=== PATIENT | male | born 1955 | race Caucasian/White ===

== ENCOUNTER 2018-06-11 18:07 | Inpatient (IN) ==
[2018-06-11] MEDS ORDERED: Levofloxacin 750 MG/150 ML 750 MG/150 ML BAG IVPB ONE (18:43)
[2018-06-11] MEDS ORDERED: methylPREDNISolone 125 MG/2 ML VIAL IVP ONE (18:43)
[2018-06-11] MEDS ORDERED: Ipratropium/Albuterol Neb 3 ML IH ONE ×2 (18:43→19:38)
[2018-06-11] MEDS ORDERED: 0.9 % Sodium Chloride 1,000 ML IVC SCH (18:45)
--- NOTE | 2018-06-11 19:12 | Emergency Department Note ---
Disposition Clinical Impression: Acute exacerbation of chronic obstructive pulmonary disease (COPD), Hyperglycemia Disposition: Admitted As Inpatient Referrals: Magnolia Chen CNP [Primary Care Provider] - Forms: ED Satisfaction Letter Time of Disposition: 20:01 SOB HPI - General Chief Complaint: ED Shortness of Breath/Dyspnea Stated Complaint: SHORTNESS OF BREATH Time Seen by Provider: 06/11/18 18:21 Source: patient, family Mode of arrival: ambulatory Limitations: no limitations Nursing Notes Reviewed: Yes Vital Signs Reviewed: Yes - History of Present Illness Patient states that he is having "another COPD exacerbation" he states that he was seen here on . Put on Z-Jesus 2 packs back to back according to his any finished those today. He seemed to improve but then got worse over the last 24 hours. He has been using his nebulizer every 4 hours because he is so short of breath. He has no home oxygen. He was diagnosed with pneumonia a year and half ago and admitted. He has had multiple episodes of COPD exacerbation since then. Patient denies any fevers, chills but does report that his coughing spells have become so severe that he becomes lightheaded and exhausted. He states the wants to sleep all the time. He states that he uses CPAP sometimes when he gets so short of breath and he is been using his nebulizer more than he should He reports no nausea, vomiting, chest pain other than that associated with the cough Patient has a history of coronary artery disease with stenting in 2011 but does not have any anginal type chest pain that feels similar to that he tells me. Patient does have diabetes, hypercholesterolemia, hypertension. And quit smoking in 2011. Pt Subjective Complaint: shortness of breath Onset (ago): hour(s) Severity: moderate Consistency/Duration: constant Improves with: rest, bronchodilators Worsens with: exertion, coughing Known history of: COPD, recurrent pneumonia, other (The patient has never had CHF) Associated symptoms: Reports: wheezing, sputum production. Denies: chest pain, orthopnea, polyuria, polydipsia, diaphoresis, nausea/vomiting, sense of impending doom Treatment prior to arrival: bronchodilator Cough present: Yes Cough Description: Voluntary, Productive, Moist, Strong, Bronchospastic Cough Frequency: Intermittent Sputum production: Yes Sputum Amount: Scant Sputum Color: White - Related Data Home oxygen amount: none Home Medications Medication Instructions Recorded Confirmed Albuterol Neb [Proventil Neb] 2.5 mg IH Q6H PRN 09/05/16 09/05/16 Albuterol Sulfate [Proair Hfa] 2 puff IH Q4H PRN 09/05/16 09/05/16 Allopurinol [Zyloprim 300 MG] 300 mg PO DAILY 09/05/16 09/05/16 Aspirin Enteric Coated [Aspirin EC] 81 mg PO DAILY 09/05/16 09/05/16 Atorvastatin Calcium 80 mg PO HS 09/05/16 09/05/16 Clopidogrel [Plavix] 75 mg PO DAILY 09/05/16 09/05/16 Fluticasone/Salmeterol [Advair 1 each IH BID 09/05/16 09/05/16 250-50 Diskus] Metformin HCl [Metformin HCl ER] 500 mg PO DAILY 09/05/16 09/05/16 Metoprolol [Lopressor] 25 mg PO BID 09/05/16 09/05/16 Tamsulosin [Flomax] 0.4 mg PO DAILY 09/05/16 09/05/16 Previous Rx's Medication Instructions Recorded predniSONE [PredniSONE] 20 mg PO DAILY #7 tablet 09/06/16 Azithromycin [Zithromax] 250 mg PO Q24H #6 tablet 06/05/18 Allergies Allergy/AdvReac Type Severity Reaction Status Date / Time No Known Allergies Allergy Verified 09/05/16 11:46 All systems ED: reviewed and negative except as stated. Review of Systems: As Per HPI Past Medical History - Past Medical History Medical history: Reports: COPD, diabetes, hyperlipidemia, hypertension, kidney stones, myocardial infarction Psychiatric history: Reports: no psych history - Social History Smoking Status: Former smoker Smokeless Tobacco Status: No Alcohol use: Reports: none Drug use: Reports: none Physical Exam Constitutional: Patient is oriented to person, place, and time. Skin color is pink. Appears well hydrated, body habitus increased AP diameter. Muscle wast ing. Patient does appear dyspneic and tachypnea at rest but is conversational and otherwise . Non toxic appearing. Head: Normocephalic and atraumatic. External ear exam normal Nose: Nose normal. Mouth/Throat: Uvula is midline, oropharynx is clear and moist and mucous membranes are normal. Eyes: Conjunctivae nl, extraocular motions and lids are normal. Pupils are equal, round, and reactive to light. Neck: Normal range of motion and phonation normal. Neck supple. Cardiovascular: Normal rate, regular rhythm, normal heart sounds. Pulmonary/Chest: No Respiratory distress. Respiratory Effort normal and breath sounds diminished. Wheezing throughout all lung [place]. Coarse rhonchi Rales at the bases.. Abdominal: Soft. Normal appearance and bowel sounds are normal. no tenderness, no masses, no guarding, no rebound Musculoskeletal: Good distal pulses. Soft compartments. Brisk cap refill. Extremities: Normal range of motion.Intact peripheral pulses. No Edema. Extremity skin color nl, no calf tenderness or palpable cords. Neurological: Patient is alert and oriented without evidence of obvious motor deficits Skin: Skin is warm, dry and intact. color is normal, cap refill is quick Psychiatric: Patient has normal mood and affect. Patient speech is normal and behavior is normal. Thought content normal. - General Limitations: no limitations General appearance: alert, in distress Course - Reevaluation(s) Reevaluation #1: Exacerbation COPD likely cause of patient's symptoms. No signs of CHF or CAD. Patient's heart rate remains elevated however and he is requiring oxygen. Will require hospitalization where pulmonary is available. Time: 19:39 Reevaluation #2: I discussed possible admission with the patient and his . They would prefer to stay here at [facility]. They see Julienne Vega NP who has a practice out of [place]. I discussed take case with Dr. Clifton child monitor for hospitalist. He and I discussed the patient's presentation, medications, test results and he agrees to accept the patient in admission. He has requested as a courtesy and I have accepted to place initial admitting orders into the system and Dr. Elodia Ascencio care of patient when he arrives on the floor. Time: 20:08 Vital Signs Temperature 98.5 F 06/11/18 18:17 Pulse Rate 124 06/11/18 18:17 Respiratory Rate 24 06/11/18 18:17 Blood Pressure 128/93 06/11/18 18:17 O2 Sat by Pulse Oximetry 87 06/11/18 18:17 Temperature 98.5 F 06/11/18 18:17 Pulse Rate 124 06/11/18 19:33 Respiratory Rate 18 06/11/18 19:33 Blood Pressure 121/99 06/11/18 19:33 O2 Sat by Pulse Oximetry 92 06/11/18 19:33 Oxygen Delivery Oxygen Delivery Nasal Cannula Shortness of Breath/Dyspnea - Differential Diagnosis Likely: acute exacerbation of chronic obstructive airways disease, congestive heart failure, pneumonia - Medical Records Medical records reviewed: Yes I reviewed the patient's medical records. - Lab Data Lab results reviewed: Yes I reviewed the patient's lab results. Result diagrams: 06/11/18 19:05 06/11/18 19:05 Lab Results 06/11/18 06/11/18 06/11/18 Range/Units 19:05 19:05 19:05 WBC 8.9 (4.3-11.1) K/mcL RBC 4.90 (4.19-5.50) M/mcL Hgb 15.4 (12.9-16.9) g/dL Hct 44.8 (37.5-50.1) % MCV 91.4 (83.0-100.0) fL MCH 31.4 (28.0-33.3) pg MCHC 34.4 (31.6-35.5) g/dL RDW 12.1 (11.5-14.5) % Plt Count 373 (140-400) K/mcL MPV 9.9 (9.4-12.4) fL Immature Gran % 0.5 (0-4) % Seg Neutrophils % 44.6 % Lymphocytes % 36.0 % Monocytes % 9.2 % Eosinophils % 8.8 % Basophils % 0.9 % Neutrophils # 4.0 (1.6-8.9) K/mcL Lymphocytes # 3.2 (0.6-4.6) K/mcL Monocytes # 0.8 (0.0-1.3) K/mcL Eosinophils # 0.8 H (0.0-0.6) K/mcL Basophils # 0.1 (0.0-0.2) K/mcL VBG pH (7.32-7.42) pH Units VBG pCO2 (41-51) mmHg VBG pO2 (25-50) mmHg VBG HCO3 (21-27) mEq/L Sodium 136 (136-145) mEq/L Potassium 3.9 (3.5-5.1) mEq/L Chloride 100 (98-107) mEq/L Carbon Dioxide 26 (23-29) mEq/L BUN 12 (8-23) mg/dL Creatinine 0.71 (0.70-1.30) mg/dL Est GFR ( Amer) > 60 (> 60) Est GFR (Non-Af Amer) > 60 (> 60) BUN/Creatinine Ratio 17 (6-26) Glucose 389 H (70-105) mg/dL Calculated Osmolality 298 (280-300) Lactic Acid 1.7 (0.5-2.2) mmol/L Calcium 9.3 (8.6-10.3) mg/dL Total Bilirubin 0.4 (0.3-1.0) mg/dL Direct Bilirubin 0.1 (0.0-0.2) mg/dL Indirect Bilirubin 0.3 (0.0-1.2) mg/dL AST 26 (13-39) Units/L ALT 33 (7-52) Units/L Alkaline Phosphatase 107 H (34-104) Units/L Troponin I < 0.03 (< 0.04) ng/mL B-Natriuretic Peptide (Less than 100) pg/mL Serum Total Protein 7.2 (6.4-8.9) g/dL Albumin 3.7 (3.5-5.7) g/dL Globulin 3.5 (2.4-3.5) g/dL Albumin/Globulin Ratio 1.1 (1.1-2.2) 06/11/18 06/11/18 Range/Units 19:05 19:27 WBC (4.3-11.1) K/mcL RBC (4.19-5.50) M/mcL Hgb (12.9-16.9) g/dL Hct (37.5-50.1) % MCV (83.0-100.0) fL MCH (28.0-33.3) pg MCHC (31.6-35.5) g/dL RDW (11.5-14.5) % Plt Count (140-400) K/mcL MPV (9.4-12.4) fL Immature Gran % (0-4) % Seg Neutrophils % % Lymphocytes % % Monocytes % % Eosinophils % % Basophils % % Neutrophils # (1.6-8.9) K/mcL Lymphocytes # (0.6-4.6) K/mcL Monocytes # (0.0-1.3) K/mcL Eosinophils # (0.0-0.6) K/mcL Basophils # (0.0-0.2) K/mcL VBG pH 7.39 (7.32-7.42) pH Units VBG pCO2 42 (41-51) mmHg VBG pO2 65 H (25-50) mmHg VBG HCO3 25 (21-27) mEq/L Sodium (136-145) mEq/L Potassium (3.5-5.1) mEq/L Chloride (98-107) mEq/L Carbon Dioxide (23-29) mEq/L BUN (8-23) mg/dL Creatinine (0.70-1.30) mg/dL Est GFR ( Amer) (> 60) Est GFR (Non-Af Amer) (> 60) BUN/Creatinine Ratio (6-26) Glucose (70-105) mg/dL Calculated Osmolality (280-300) Lactic Acid (0.5-2.2) mmol/L Calcium (8.6-10.3) mg/dL Total Bilirubin (0.3-1.0) mg/dL Direct Bilirubin (0.0-0.2) mg/dL Indirect Bilirubin (0.0-1.2) mg/dL AST (13-39) Units/L ALT (7-52) Units/L Alkaline Phosphatase (34-104) Units/L Troponin I (< 0.04) ng/mL B-Natriuretic Peptide 11 (Less than 100) pg/mL Serum Total Protein (6.4-8.9) g/dL Albumin (3.5-5.7) g/dL Globulin (2.4-3.5) g/dL Albumin/Globulin Ratio (1.1-2.2) - Radiology Data Radiology results reviewed: Yes I reviewed the patient's radiology results. Chest x-ray per radiology report "no evidence of acute cardiopulmonary process" - EKG Data EKG attestation: Yes I reviewed and interpreted this EKG. EKG results narrative: Sinus, rate of 122, no evidence of acute ST-T wave changes. Sinus tachycardia. EKG shows normal: Reports: sinus rhythm
[2018-06-11 19:15] LABS: Basophils # 0.1 K/mcL (0.0-0.2); Basophils % 0.9 %; Eosinophils # 0.8 K/mcL (0.0-0.6); Eosinophils % 8.8 %; Hematocrit 44.8 % (37.5-50.1); Hemoglobin 15.4 g/dL (12.9-16.9); Immature Granulocytes % 0.5 % (0-4); Lymphocytes # 3.2 K/mcL (0.6-4.6); Mean Corpuscular HGB Conc 34.4 g/dL (31.6-35.5); Mean Corpuscular Hemoglobin 31.4 pg (28.0-33.3); Mean Corpuscular Volume 91.4 fL (83.0-100.0); Mean Platelet Volume 9.9 fL (9.4-12.4); Monocytes # 0.8 K/mcL (0.0-1.3); Monocytes % 9.2 %; Platelet Count 373 K/mcL (140-400); Red Cell Distribution Width 12.1 % (11.5-14.5); Segmented Neutrophils % 44.6 %
[2018-06-11 19:31] LABS: Troponin I < 0.03 ng/mL (< 0.04)
[2018-06-11 19:31] LABS: VBG HCO3 25 mEq/L (21-27); VBG PCO2 42 mmHg (41-51); VBG PH 7.39 pH Units (7.32-7.42); VBG PO2 65 mmHg (25-50)
[2018-06-11 19:32] LABS: Alanine Aminotransferase 33 Units/L (7-52); Albumin 3.7 g/dL (3.5-5.7); Albumin/Globulin Ratio 1.1 (1.1-2.2); Alkaline Phosphatase 107 Units/L (34-104); Aspartate Amino Transferase 26 Units/L (13-39); BUN/Creatinine Ratio 17 (6-26); Bilirubin,Direct 0.1 mg/dL (0.0-0.2); Bilirubin,Indirect 0.3 mg/dL (0.0-1.2); Bilirubin,Total 0.4 mg/dL (0.3-1.0); Blood Urea Nitrogen 12 mg/dL (8-23); Calcium 9.3 mg/dL (8.6-10.3); Carbon Dioxide 26 mEq/L (23-29); Chloride 100 mEq/L (98-107); Globulin 3.5 g/dL (2.4-3.5); Glucose 389 mg/dL (70-105); Osmolality,Calculated 298 (280-300); Potassium 3.9 mEq/L (3.5-5.1); Sodium 136 mEq/L (136-145); Total Protein 7.2 g/dL (6.4-8.9); eGFR For Non-African Americans > 60 (> 60)
[2018-06-11] MEDS ORDERED: Insulin Regular, Human 100 UNIT/ML SQ ONE (19:38)
[2018-06-11] MEDS ORDERED: 0.9 % Sodium Chloride 1,000 ML ONE (19:58)
[2018-06-11] MEDS ORDERED: *HR* Dextrose 50 % in Water (Syg) 50 ML SYRINGE IVP PRN (22:00)
[2018-06-11] MEDS ORDERED: Naloxone 0.4 MG/ML INJ IVP PRN (22:00)
[2018-06-11] MEDS ORDERED: Acetaminophen 325 MG TABLET PO PRN (22:00)
[2018-06-11] MEDS ORDERED: Dextrose Gel 15 GM/37.5 ML TUBE PO PRN ×2 (22:00)
[2018-06-11] MEDS: Budesonide/Formoterol 80/4.5 MDI IH SCH (22:32)
[2018-06-12] MEDS: Insulin LISPRO 300 UNITS/3 ML VIAL SQ SCH ×4 (00:51→18:15)
[2018-06-12] MEDS: Ipratropium/Albuterol Neb 3 ML IH SCH ×6 (00:53→21:02)
[2018-06-12] MEDS: 0.9 % Sodium Chloride 1,000 ML IVC SCH ×4 (01:30→10:01)
[2018-06-12] MEDS: methylPREDNISolone 125 MG/2 ML VIAL IVP SCH ×4 (01:31→21:01)
[2018-06-12] MEDS ORDERED: *HR* Enoxaparin 80 MG/0.8 ML SYRINGE SQ SCH (06:00)
[2018-06-12 06:09] LABS: Basophils % 0.3 %; Eosinophils % 0.1 %; Hematocrit 43.8 % (37.5-50.1); Hemoglobin 14.7 g/dL (12.9-16.9); Immature Granulocytes % 0.8 % (0-4); Lymphocytes # 1.3 K/mcL (0.6-4.6); Lymphocytes % 14.1 %; Mean Corpuscular HGB Conc 33.6 g/dL (31.6-35.5); Mean Corpuscular Hemoglobin 31.3 pg (28.0-33.3); Mean Corpuscular Volume 93.2 fL (83.0-100.0); Mean Platelet Volume 10.1 fL (9.4-12.4); Monocytes # 0.1 K/mcL (0.0-1.3); Monocytes % 0.9 %; Neutrophils # 7.7 K/mcL (1.6-8.9); Platelet Count 320 K/mcL (140-400); Segmented Neutrophils % 83.8 %
[2018-06-12 06:23] LABS: Chol/HDL Ratio 3.2 (0-4.9); Magnesium 1.9 mg/dL (1.6-2.6)
[2018-06-12] MEDS: Aspirin Enteric Coated 81 MG Tablet PO SCH (07:49)
[2018-06-12] MEDS: *HR* Metformin 500 MG TABLET PO SCH ×2 (07:49→17:24)
[2018-06-12] MEDS: Budesonide/Formoterol 80/4.5 MDI IH SCH ×2 (10:02→21:31)
--- NOTE | 2018-06-12 11:53 | Internal Med History&Physical ---
Date of Encounter: 06/12/18 Time of Encounter: 11:53 Assessment and Plan (1) Acute exacerbation of chronic obstructive airways disease Current visit: No Status: Acute This is more of a subacute exacerbation. I agree with antibiotics and steroids. We will need to have him treated with supplemental oxygen, at least briefly. I have recommended to him and his that he speak seen by a project controls specialist. (2) Coronary artery disease Current visit: Yes Status: Acute This is clinically stable. I believe that all of his symptoms are respiratory and not cardiac, at this point. Qualifiers: Coronary Disease-Associated Artery/Lesion type: unspecified vessel or lesion type [place] vs. transplanted heart: [place] heart Associated angina: angina presence unspecified Qualified Code(s): I25.10 - Atherosclerotic heart disease of [place] coronary artery without angina pectoris (3) Diabetes mellitus Current visit: No Status: Acute I explained to patient and that the steroids will make this worse. We will follow and treat with sliding scale insulin. 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 We will continue home regimen and follow. Qualifiers: Hypertension type: essential hypertension Qualified Code(s): I10 - Essential (primary) hypertension (5) Anxiety Current visit: Yes Status: Acute It is hard to know if this is related to his respiratory discomfort or if this is an underlying anxiety disorder. We will avoid benzodiazepines because of the risk of CO2 retention. Internal Medicine - H&P: HPI Admitted From: Home Plans for Post Hospital Care: Home History of present illness: Mr. Burnham is a 63 year old male who has a long-term history of COPD. He has not used oxygen at home. However, he is used CPAP for sleep apnea. His and he notes that he has been using CPAP more, even during the day, for the last several months. The patient states that his breathing has worsened over the last 2 months, rather steadily. He denies acute infection or worsening, that way. He has had more cough over the last couple weeks. He has no production of phlegm. He denies fever or chills, respiratory symptoms otherwise, will cold exposure or upper respiratory tract infection symptoms. He has no, earache, sore throat, rhinorrhea, etc. Since arrival here, he has still felt relatively short of breath and has been an xious about his breathing, at times. Nursing notes that he frequently needs more respiratory treatment and he has received and ask for albuterol nebulizers, as needed. I complied. History was otherwise reviewed with patient. Past medical history is significant for hypertension, coronary disease status post stent placement, followed by Dr. Michael of cardiology with recent visit normal about 2 weeks ago. He has hyperlipidemia and is otherwise stable. He is not breathing well and did not want to talk but a brief review of systems is as listed below. He prefers that I evaluate medications from his list which he states is accurate. Past Med Surg Social Fam HX - Past Medical History Medical history: COPD, diabetes, hyperlipidemia, hypertension, kidney stones, myocardial infarction Psychiatric history: no psych history - Past Surgical History Surgical History: other Additional surgical history: Stent placement x1. Nasal Polyps removal - Social History Smoking Status: Former smoker Packs per day: He stopped smoking 4 years ago Smokeless Tobacco Status: No Alcohol use: none Drug use: none - Family History Mother Living Status: Still Living Hx Family Cardiac Disorders: Yes Hx Family Respiratory Disorders: No Hx Family Cancer: No Hx Family GI Disorders: No Hx Family Genitourinary Disorders: No Hx Family Endocrine Disorder: No Hx Family Musculoskeletal Disorders: No Hx Family Neuromuscular Disorders: No Hx Family Neurologic Disorders: No Hx Family HEENT Disorders: No Hx Family Autoimmune Disorders: No Hx Family Reproductive Disorders: No Hx Family Psychosocial Disorders: No Hx Family Medical Disorders: No Father Age: 49 Living Status: Hx Family Cardiac Disorders: Yes Hx Family Respiratory Disorders: No Hx Family Cancer: No Hx Family GI Disorders: No Hx Family Genitourinary Disorders: No Hx Family Endocrine Disorder: No Hx Family Musculoskeletal Disorders: No Hx Family Neuromuscular Disorders: No Hx Family Neurologic Disorders: No Hx Family HEENT Disorders: No Hx Family Autoimmune Disorders: No Hx Family Reproductive Disorders: No Hx Family Psychosocial Disorders: No Hx Family Medical Disorders: No Internal Medicine - H&P: Meds Albuterol Neb [Proventil Neb] 2.5 mg IH Q6H PRN 09/05/16 [History] Albuterol Sulfate [Proair Hfa] 2 puff IH Q4H PRN 09/05/16 [History] Allopurinol [Zyloprim 300 MG] 300 mg PO DAILY 09/05/16 [History] Aspirin Enteric Coated [Aspirin EC] 81 mg PO DAILY 09/05/16 [History] Atorvastatin Calcium 80 mg PO HS 09/05/16 [History] Clopidogrel [Plavix] 75 mg PO DAILY 09/05/16 [History] Fluticasone/Salmeterol [Advair 250-50 Diskus] 1 each IH BID 09/05/16 [History] Metformin HCl [Metformin HCl ER] 500 mg PO DAILY 09/05/16 [History] Metoprolol [Lopressor] 25 mg PO BID 09/05/16 [History] Tamsulosin [Flomax] 0.4 mg PO DAILY 09/05/16 [History] Allergy/AdvReac Type Severity Reaction Status Date / Time No Known Allergies Allergy Verified 06/11/18 20:28 All Systems PM: Patient has no complaint of chest discomfort, dyspnea, orthopnea, breathing problems, palpitations, nausea or vomiting, constipation or diarrhea, other changes in bowel habits, heartburn, difficulty with urination, kidney problems or kidney stones, fevers chills or sweats, rash or itching, seizures, headache or lightheadedness, heat or cold intolerance, blood problems or anemia, or other new complaints, except as mentioned above. Review of systems is otherwise negative.. - Constitutional Vitals: Temp Pulse Resp BP Pulse Ox 98.6 F 110 17 136/76 93 06/12/18 00:00 06/12/18 08:45 06/12/18 08:45 06/12/18 08:45 06/12/18 08:45 Exam: Examination: (Except as mentioned above): General: In mild respiratory distress, using tripod posture and breathing rapidly, alert and oriented 3. He has a Venturi mask in place. Head: Atraumatic and normocephalic. Eyes: Extraocular muscles are intact, pupils equal round and reactive to light and accommodation. Sclerae anicteric. Ears: External ears are normal to inspection and hearing is grossly normal. Nose: Patent without lesion noted. Mouth: No intraoral lesions seen. Dentition is unremarkable. Neck: Supple with trachea midline. There is no thyromegaly or adenopathy and carotids are 2+ without bruit heard. Respiratory: No use of accessory muscles. Lungs with diffuse wheezing. There are no rales or rhonchi except sibilant.. He is tripoding, as above. Cardiovascular: Tachycardic but without murmur appreciated. Rhythm is regular. Abdomen: Bowel sounds are normal. No hepatosplenomegaly masses or tenderness. Obese and therefore difficult to palpate deeply. Patient is examined upright in chair and this also limits exam. Extremities: No cyanosis clubbing or edema. Neurological: A and O 3. Cranial nerves II through XII are intact. No focal deficits and no abnormal movements or postures. Skin: Warm and non-diaphoretic with no lesions noted. Breasts, pelvic and rectal: Not examined. Internal Med - H&P Results - Labs CBC & Chem 7: 06/12/18 05:30 06/11/18 19:05 Labs: Short CBC 06/11/18 06/12/18 Range/Units 19:05 05:30 WBC 8.9 9.1 (4.3-11.1) K/mcL Hgb 15.4 14.7 (12.9-16.9) g/dL Hct 44.8 43.8 (37.5-50.1) % Plt Count 373 320 (140-400) K/mcL Neutrophils # 4.0 7.7 (1.6-8.9) K/mcL BMP 06/11/18 19:05 Sodium 136 Potassium 3.9 Chloride 100 Carbon Dioxide 26 BUN 12 Creatinine 0.71 Glucose 389 H Calcium 9.3 Cardiac Enzymes 06/11/18 Range/Units 19:05 Troponin I < 0.03 (< 0.04) ng/mL Liver Function 06/11/18 Range/Units 19:05 Total Bilirubin 0.4 (0.3-1.0) mg/dL Direct Bilirubin 0.1 (0.0-0.2) mg/dL AST 26 (13-39) Units/L ALT 33 (7-52) Units/L Alkaline Phosphatase 107 H (34-104) Units/L Albumin 3.7 (3.5-5.7) g/dL - ABG Interpretation ABG results: 06/11/18 19:27 VBG pH 7.39 VBG pCO2 42 VBG pO2 65 H VBG HCO3 25 - Impressions ITS Impressions Chest X-Ray 06/11/18 18:43 IMPRESSION: No evidence for acute cardiopulmonary process. D/ / Ananth Johnson MD / Ananth Johnson MD Interpreting Provider: Ananth Johnson MD
[2018-06-12] MEDS ORDERED: Ipratropium/Albuterol Neb 3 ML IH PRN (19:20)
[2018-06-12] MEDS ORDERED: Levofloxacin 750 MG/150 ML 750 MG/150 ML BAG IVPB SCH (21:00)
[2018-06-13] MEDS: Ipratropium/Albuterol Neb 3 ML IH SCH ×6 (00:15→21:50)
[2018-06-13] MEDS: Insulin LISPRO 300 UNITS/3 ML VIAL SQ SCH ×4 (00:16→18:33)
[2018-06-13] MEDS: methylPREDNISolone 125 MG/2 ML VIAL IVP SCH ×2 (02:25→08:34)
[2018-06-13] MEDS ORDERED: *HR* Enoxaparin 40 MG/0.4 ML SYRINGE SQ SCH (06:00)
[2018-06-13] MEDS: Budesonide/Formoterol 80/4.5 MDI IH SCH ×2 (08:15→21:50)
[2018-06-13] MEDS: *HR* Metformin 500 MG TABLET PO SCH ×2 (08:33→18:34)
[2018-06-13] MEDS: Aspirin Enteric Coated 81 MG Tablet PO SCH (08:34)
--- NOTE | 2018-06-13 12:30 | Discharge Summary ---
Orders not resulted at time of discharge: Pending orders 06/11/18 19:05 Culture,Blood [BC] Stat 06/11/18 22:00 Hgb A1C Routine Date of Encounter: 06/13/18 Time of Encounter: 12:27 - Discharge Diagnosis (1) COPD (chronic obstructive pulmonary disease) Priority: Primary Status: Chronic Comments: Patient was admitted to emergency department with exacerbation of COPD. Patient complaints of increasing dyspnea over the past several days. Initial chest x- ray showed no infectious process but patient noted to have moderate expiratory wheezes and a productive cough. Patient was started on Levaquin for possible bronchitis. Patient also noted to have an to see and during her stay at this facility patient was qualified for home oxygen with recommendations of continued use at home. Patient was treated with cortical steroids which have been converted to oral and patient will be discharged home with a prescription for prednisone 60 mg for 2 days and then to drop the dose to 40 mg daily for 5 days. Patient will be given a prescription also for Levaquin 750 mg to be given daily for the next 5 days. Patient is recommended to follow-up with PCP within one week for further management. A consultation in place for Dr. Zimmerman, pulmonology for patient to have further follow-up. Patient states he feels respiratory status has improved over the past 2 days. Patient continues to use his CPAP for nighttime use and during the day when necessary when he becomes winded. Qualifiers: COPD type: unspecified COPD Qualified Code(s): J44.9 - Chronic obstructive pulmonary disease, unspecified (2) Hypertension Priority: Secondary Status: Chronic Comments: Vital signs remained stable during her stay at this facility. Patient is continue with home medications after discharge and follow-up with PCP. Qualifiers: Hypertension type: essential hypertension Qualified Code(s): I10 - Essential (primary) hypertension (3) Diabetes mellitus Priority: Secondary Status: Acute Comments: Patients glucose has been slightly elevated during her stay at this facility although patient has been started on cortical steroids. Patient is recommended to continue his Accu-Cheks at home and to follow-up with his PCP for further management. Glucose likely decrease after patient is finished with this pr ednisone Qualifiers: Diabetes mellitus type: type 2 Diabetes mellitus custodial insulin use: without long term care pharmacist use Diabetes mellitus complication status: without complication Qualified Code(s): E11.9 - Type 2 diabetes mellitus without complications (4) Coronary artery disease Priority: Secondary Status: Acute Comments: No acute issues during his stay at this facility. Patient denies any chest palpitations or discomforts. Patient to continue with home medications after discharge and follow-up with PCP for further management. Qualifiers: Coronary Disease-Associated Artery/Lesion type: unspecified vessel or lesion type [place] vs. transplanted heart: [place] heart Associated angina: angina presence unspecified Qualified Code(s): I25.10 - Atherosclerotic heart disease of [place] coronary artery without angina pectoris Hospital course: Mr. Burnham is a 63 year old male, who was admitted to this facility after presented to emergency department with exacerbation of COPD. Patient had a complaints of increased dyspnea for several days prior to his admission. Patient was admitted and Treated with bronchodilators and corticosteroids. Patient was also started on Levaquin daily in order past 2 days states that his respiratory effort have improved greatly. Noted to continue to have O2 dependency and due to his long history of COPD has recommended patient to continue on home O2 when necessary after discharge. Patient is being in discharge to home with recommendations to continue on cortical steroids for the next 7 days and with a prescription for Levaquin for the next 5 days. 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 Discharge discussed with: patient Time spent discussing smoking cessation with patient: 3 to 10 minutes - Time Spent with Patient Total time spent providing and/or coordinating discharge services: Less than 30 minutes - Discharge Medications Home Medications: Albuterol Neb [Proventil Neb] 2.5 mg IH Q6H PRN 09/05/16 [History] Albuterol Sulfate [Proair Hfa] 2 puff IH Q4H PRN 09/05/16 [History] Allopurinol [Zyloprim 300 MG] 300 mg PO DAILY 09/05/16 [History] Aspirin Enteric Coated [Aspirin EC] 81 mg PO DAILY 09/05/16 [History] Atorvastatin Calcium 80 mg PO HS 09/05/16 [History] Clopidogrel [Plavix] 75 mg PO DAILY 09/05/16 [History] Fluticasone/Salmeterol [Advair 250-50 Diskus] 1 each IH BID 09/05/16 [History] Metformin HCl [Metformin HCl ER] 500 mg PO DAILY 09/05/16 [History] Metoprolol [Lopressor] 25 mg PO BID 09/05/16 [History] Tamsulosin [Flomax] 0.4 mg PO DAILY 09/05/16 [History] Allergies/Adverse Reactions: Allergy/AdvReac Type Severity Reaction Status Date / Time No Known Allergies Allergy Verified 06/11/18 20:28 Date of admission: 06/11/18 20:50 Primary care physician: Magnolia Chen CNP Discharging clinician: Bay Medina - Constitutional Vitals: Temp Pulse Resp BP Pulse Ox 97.7 F 96 18 112/69 93 06/13/18 11:49 06/13/18 11:49 06/13/18 11:49 06/13/18 11:49 06/13/18 11:49 General appearance: Present: A&O X 3, pleasant - Head Head exam: Present: atraumatic, normocephalic - Eye Eye exam: Present: PERRL, conjuntiva pink, sclera anicteric Pupils: Present: PERRL - Neck Neck exam general surgery: Present: supple, trachea midline. Absent: lymphadenopathy - Respiratory Respiratory exam: Present: CTAB. Absent: accessory muscle use, rales, rhonchi, wheezes Additional comments: Lungs are clear throughout [place] with diminished bases. Respiratory effort appears relaxed. Patient currently with CPAP and use. - Cardiovascular Cardiovascular exam: Present: RRR, +S1, +S2. Absent: diastolic murmur, gallop, rubs, systolic murmur - GI/Abdominal GI/Abdominal exam: Present: normal bowel sounds, soft, no peritoneal signs. Absent: distended, tenderness - Extremities Exam Extremities exam: Present: warm, radial pulses palpable and symmetrical. Absent: calf tenderness, cyanotic, pedal edema - Neurological Exam Neurological exam: Present: CN II-XII intact, oriented X3, no focal deficits. Absent: pronater drift, facial droop, speech deficit - Skin Skin exam: Present: dry, intact - Patient Status Disposition: Home Health Service Condition: Fair Functional capacity at discharge: uses cane/walker Overall status at discharge: patient is progressing back to baseline - Discharge Instructions Follow Up With: Magnolia Chen CNP [Primary Care Provider] - - Diet and Activity Activity: increase activity as tolerated Diet: low fat, low cholesterol, low salt diet
[2018-06-13] MEDS ORDERED: predniSONE 20 MG TABLET PO ONE (12:48)
--- NOTE | 2018-06-13 15:15 | Electrocardiograph Report ---
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
--- NOTE | 2018-06-13 16:20 | Electrocardiograph Report ---
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
[2018-06-14] MEDS ORDERED: D5% in Water 1,000 ML IVC PRN (00:20)
[2018-06-14] MEDS: Ipratropium/Albuterol Neb 3 ML IH SCH ×5 (01:30→15:34)
[2018-06-14] MEDS: Insulin LISPRO 300 UNITS/3 ML VIAL SQ SCH ×3 (01:30→12:55)
[2018-06-14] MEDS: Budesonide/Formoterol 80/4.5 MDI IH SCH (07:42)
[2018-06-14 07:58] VITALS: BP 102/64
[2018-06-14] MEDS: *HR* Metformin 500 MG TABLET PO SCH (07:59)
[2018-06-14] MEDS: Aspirin Enteric Coated 81 MG Tablet PO SCH (07:59)
--- NOTE | 2018-06-14 11:54 | Internal Med Progress Note ---
Date of Encounter: 06/14/18 Time of Encounter: 11:52 - Assessment and plan (1) COPD (chronic obstructive pulmonary disease) Current Visit: Yes Status: Chronic Assessment and plan: No acute issues. Patient continues to have planned discharge today. Delay in discharge due to difficulty in setting of oxygen at home. No changes noted in his pulmonary status and patient actually has been able to have his oxygen weaned while at rest in bed. Patient continues to use CPAP at night. We will continue with current plan of care with patient to have home oxygen initiated and to have a follow-up consult with pulmonology. Patient to continue with prednisone, receiving 60 mg today and then to have 40 mg daily for the next 5 days starting tomorrow Qualifiers: COPD type: unspecified COPD Qualified Code(s): J44.9 - Chronic obstructive pulmonary disease, unspecified (2) Hypertension Current Visit: No Status: Chronic Assessment and plan: No acute issues. Vital signs are stable. We will continue with home medications. Qualifiers: Hypertension type: essential hypertension Qualified Code(s): I10 - Essential (primary) hypertension (3) Diabetes mellitus Current Visit: No Status: Acute Assessment and plan: Glucose from a slightly elevated, likely secondary to use of cortical steroids. 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 Patient denies any chest palpitations or discomforts. Patient to continue with home medications after discharge and follow-up with PCP Qualifiers: Coronary Disease-Associated Artery/Lesion type: unspecified vessel or lesion type [place] vs. transplanted heart: [place] heart Associated angina: angina presence unspecified Qualified Code(s): I25.10 - Atherosclerotic heart disease of [place] coronary artery without angina pectoris - Time Spent With Patient less than 15 minutes - Subjective Interval history: Patient currently denies any discomforts or shortness of breath. Patient was to be discharged yesterday, but difficulties with having his oxygen set up at home preventatives discharge. Patient states that he breezes breathing has improved today and that he had a good night sleep. Patient continues to use CPAP during the night. She reports patient has had his oxygen weaned and currently maintains saturation greater than 90% while at rest. Patient reportedly desaturated with exertion yesterday. Patient denies any chest palpitations or productive cough. Patient states that he feels that he is ready to be dischar ge home today. Patient continues on cortical steroids and continues to have elevated glucose greater than 300 on most fingersticks. - Constitutional Vitals: Temp Pulse Resp BP Pulse Ox 97.5 F L 79 19 102/64 90 06/14/18 07:00 06/14/18 07:00 06/14/18 07:44 06/14/18 07:00 06/14/18 07:44 General appearance: Present: A&O X 3, pleasant - Head Head exam: Present: atraumatic, normocephalic - Eye Eye exam: Present: PERRL, conjuntiva pink, sclera anicteric Pupils: Present: PERRL - Neck Neck exam general surgery: Present: supple, trachea midline. Absent: lymphadenopathy - Respiratory Respiratory exam: Present: CTAB. Absent: accessory muscle use, rales, rhonchi, wheezes - Cardiovascular Cardiovascular exam: Present: RRR, +S1, +S2. Absent: diastolic murmur, gallop, rubs, systolic murmur - GI/Abdominal GI/Abdominal exam: Present: normal bowel sounds, soft, no peritoneal signs. Absent: distended, tenderness - Extremities Exam Extremities exam: Present: pedal edema, warm, radial pulses palpable and symmetr ical. Absent: calf tenderness, cyanotic - Neurological Exam Neurological exam: Present: CN II-XII intact, oriented X3, no focal deficits. Absent: pronater drift, facial droop, speech deficit - Skin Skin exam: Present: dry, intact Internal Medicine: Result - Labs CBC & Chem 7: 06/12/18 05:30 06/11/18 19:05 Consult Discharge Plan - Plan Referrals: Magnolia Chen CNP [Primary Care Provider] -
[2018-06-14 14:08] LABS: Estimated Average Glucose 344 mg/dl; Hemoglobin A1C 13.6 %
[2018-06-14] MEDS ORDERED: Insulin LISPRO 300 UNITS/3 ML VIAL SQ SCH (21:00)
== END 2018-06-14 16:20 | disposition home health service (06) | DRG 192 ==
LOC: EMEROOGRE 18:07 → INPGRE 18:07

== ENCOUNTER 2019-06-17 10:28 | Inpatient (IN) ==
[2019-06-18] MEDS ORDERED: Nitroglycerin 0.4 MG TAB.SUBL SL PRN (17:21)
[2019-06-18] MEDS ORDERED: Albuterol 2.5 MG/3 ML NEBULIZER IH PRN (17:21)
[2019-06-18] MEDS ORDERED: D5% in Water 1,000 ML IVC PRN (17:22)
[2019-06-18] MEDS ORDERED: Dextrose Gel 15 GM/37.5 ML TUBE PO PRN ×2 (17:22)
[2019-06-18] MEDS ORDERED: *HR* Dextrose 50 % in Water (Syg) 50 ML SYRINGE IVP PRN (17:22)
[2019-06-18] MEDS ORDERED: Acetaminophen 325 MG TABLET PO PRN (17:39)
[2019-06-18] MEDS ORDERED: Ondansetron ODT 4 MG TAB.RAPDIS SL PRN (17:39)
[2019-06-18] MEDS: Insulin LISPRO 300 UNITS/3 ML VIAL SQ SCH ×2 (18:05→20:38)
[2019-06-18] MEDS: levETIRAcetam 250 MG TABLET PO SCH (20:18)
[2019-06-18] MEDS: dexAMETHasone 4 MG TABLET PO SCH (20:18)
[2019-06-18] MEDS ORDERED: Insulin DETEMIR 100 UNIT/ML per UNIT SQ ONE (21:00)
[2019-06-18] MEDS: Budesonide/Formoterol 160/4.5 1 PUFF INH IH SCH (21:46)
[2019-06-19 05:45] LABS: Basophils % 0.1 %; Eosinophils % 0.1 %; Hematocrit 42.9 % (37.5-50.1); Hemoglobin 14.7 g/dL (12.9-16.9); Immature Granulocytes % 0.8 % (0-4); Lymphocytes # 1.7 K/mcL (0.6-4.6); Lymphocytes % 12.1 %; Mean Corpuscular HGB Conc 34.3 g/dL (31.6-35.5); Mean Corpuscular Hemoglobin 30.8 pg (28.0-33.3); Mean Corpuscular Volume 89.9 fL (83.0-100.0); Mean Platelet Volume 9.4 fL (9.4-12.4); Monocytes # 0.8 K/mcL (0.0-1.3); Monocytes % 5.6 %; Platelet Count 215 K/mcL (140-400); Red Blood Count 4.77 M/mcL (4.19-5.50); Red Cell Distribution Width 12.5 % (11.5-14.5); Segmented Neutrophils % 81.3 %; White Blood Count 14.3 K/mcL (4.3-11.1)
[2019-06-19 05:47] LABS: Neutrophils # 11.6 K/mcL (1.6-8.9)
[2019-06-19 06:00] LABS: Alanine Aminotransferase 24 Units/L (7-52); Albumin 3.2 g/dL (3.5-5.7); Albumin/Globulin Ratio 1.1 (1.1-2.2); Alkaline Phosphatase 66 Units/L (34-104); Aspartate Amino Transferase 13 Units/L (13-39); BUN/Creatinine Ratio 34 (6-26); Bilirubin,Total 0.6 mg/dL (0.3-1.0); Blood Urea Nitrogen 24 mg/dL (8-23); Calcium 8.4 mg/dL (8.6-10.3); Carbon Dioxide 24 mEq/L (23-29); Chloride 102 mEq/L (98-107); Globulin 2.8 g/dL (2.4-3.5); Glucose 179 mg/dL (70-105); Osmolality,Calculated 287 (280-300); Potassium 4.6 mEq/L (3.5-5.1); Sodium 134 mEq/L (136-145); eGFR For African Americans > 60 (> 60); eGFR For Non-African Americans > 60 (> 60)
[2019-06-19] MEDS: dexAMETHasone 4 MG TABLET PO SCH ×2 (08:23→19:38)
[2019-06-19] MEDS: levETIRAcetam 250 MG TABLET PO SCH ×2 (08:23→19:38)
[2019-06-19] MEDS: Insulin LISPRO 300 UNITS/3 ML VIAL SQ SCH ×4 (08:24→20:24)
[2019-06-19] MEDS: Fluticasone Propionate Nasal 50 MCG/SPRAY BOTTLE NS SCH (08:24)
[2019-06-19] MEDS: Budesonide/Formoterol 160/4.5 1 PUFF INH IH SCH ×2 (10:11→21:33)
[2019-06-19] MEDS: Tiotropium 18 MCG inhalation IH SCH (10:11)
[2019-06-19] MEDS: Insulin DETEMIR 100 UNIT/ML X5UNITS SQ SCH (20:23)
[2019-06-20] MEDS: Insulin LISPRO 300 UNITS/3 ML VIAL SQ SCH ×4 (07:50→21:00)
[2019-06-20] MEDS: levETIRAcetam 250 MG TABLET PO SCH ×2 (09:26→21:00)
[2019-06-20] MEDS: dexAMETHasone 4 MG TABLET PO SCH ×2 (09:26→21:00)
[2019-06-20] MEDS: Fluticasone Propionate Nasal 50 MCG/SPRAY BOTTLE NS SCH (09:31)
[2019-06-20] MEDS: Tiotropium 18 MCG inhalation IH SCH (10:16)
[2019-06-20] MEDS: Budesonide/Formoterol 160/4.5 1 PUFF INH IH SCH ×2 (10:17→21:00)
[2019-06-20] MEDS ORDERED: Bisacodyl 10 MG RECTAL SUPPOSITORY RC ONE (15:30)
[2019-06-20] MEDS: Insulin DETEMIR 100 UNIT/ML X5UNITS SQ SCH (21:00)
[2019-06-20] MEDS ORDERED: Lactulose Oral Soln 20 GM/30 ML UDC PO SCH (21:00)
[2019-06-21] MEDS: Insulin LISPRO 300 UNITS/3 ML VIAL SQ SCH ×4 (07:29→21:11)
[2019-06-21] MEDS: levETIRAcetam 250 MG TABLET PO SCH (08:14)
[2019-06-21] MEDS: dexAMETHasone 4 MG TABLET PO SCH (08:14)
[2019-06-21] MEDS: Fluticasone Propionate Nasal 50 MCG/SPRAY BOTTLE NS SCH (08:16)
[2019-06-21] MEDS: Tiotropium 18 MCG inhalation IH SCH (12:03)
[2019-06-21] MEDS: Budesonide/Formoterol 160/4.5 1 PUFF INH IH SCH ×2 (12:03→21:10)
[2019-06-21] MEDS ORDERED: *HR* LORazepam 0.5 MG TABLET PO PRN (13:00)
[2019-06-21] MEDS: Insulin DETEMIR 100 UNIT/ML X5UNITS SQ SCH (21:10)
[2019-06-22] MEDS ORDERED: *HR* LORazepam 1 MG TABLET PO ONE (07:47)
[2019-06-22] MEDS: Insulin LISPRO 300 UNITS/3 ML VIAL SQ SCH ×4 (08:07→20:26)
[2019-06-22] MEDS: dexAMETHasone 4 MG TABLET PO SCH (08:11)
[2019-06-22] MEDS: Fluticasone Propionate Nasal 50 MCG/SPRAY BOTTLE NS SCH (08:12)
[2019-06-22] MEDS: Budesonide/Formoterol 160/4.5 1 PUFF INH IH SCH ×2 (10:21→20:26)
[2019-06-22] MEDS: Tiotropium 18 MCG inhalation IH SCH (10:21)
[2019-06-22] MEDS ORDERED: *HR* LORazepam 0.5 MG TABLET PO PRN (11:00)
[2019-06-22] MEDS ORDERED: *HR* LORazepam 1 MG TABLET PO PRN (11:15)
[2019-06-22] MEDS: Insulin DETEMIR 100 UNIT/ML X5UNITS SQ SCH (20:25)
[2019-06-23] MEDS: Insulin LISPRO 300 UNITS/3 ML VIAL SQ SCH ×4 (07:53→21:02)
[2019-06-23] MEDS: Fluticasone Propionate Nasal 50 MCG/SPRAY BOTTLE NS SCH (07:59)
[2019-06-23] MEDS: dexAMETHasone 4 MG TABLET PO SCH (07:59)
[2019-06-23] MEDS ORDERED: *HR* LORazepam 0.5 MG TABLET PO PRN (10:12)
[2019-06-23] MEDS: Budesonide/Formoterol 160/4.5 1 PUFF INH IH SCH ×2 (11:15→20:46)
[2019-06-23] MEDS: Tiotropium 18 MCG inhalation IH SCH (11:15)
[2019-06-23] MEDS: *HR* LORazepam 1 MG TABLET PO PRN ×2 (13:11→20:45)
[2019-06-23] MEDS: Insulin DETEMIR 100 UNIT/ML X5UNITS SQ SCH (21:10)
[2019-06-24 05:54] LABS: Hematocrit 41.9 % (37.5-50.1); Hemoglobin 14.4 g/dL (12.9-16.9); Mean Corpuscular HGB Conc 34.4 g/dL (31.6-35.5); Mean Corpuscular Hemoglobin 30.8 pg (28.0-33.3); Mean Corpuscular Volume 89.7 fL (83.0-100.0); Mean Platelet Volume 8.9 fL (9.4-12.4); Platelet Count 209 K/mcL (140-400); Red Blood Count 4.67 M/mcL (4.19-5.50); Red Cell Distribution Width 12.5 % (11.5-14.5); White Blood Count 11.6 K/mcL (4.3-11.1)
[2019-06-24 06:22] LABS: BUN/Creatinine Ratio 29 (6-26); Blood Urea Nitrogen 18 mg/dL (8-23); Calcium 8.1 mg/dL (8.6-10.3); Carbon Dioxide 24 mEq/L (23-29); Chloride 102 mEq/L (98-107); Glucose 142 mg/dL (70-105); Magnesium 2.1 mg/dL (1.6-2.6); Osmolality,Calculated 282 (280-300); Potassium 3.8 mEq/L (3.5-5.1); Sodium 134 mEq/L (136-145); eGFR For African Americans > 60 (> 60); eGFR For Non-African Americans > 60 (> 60)
[2019-06-24 06:51] LABS: Bilirubin,Urine Negative (Negative); Blood,Urine Trace-intact (Negative); Clarity,Urine Clear (Clear); Color,Urine Yellow (Yellow); Glucose,Urine (UA) Normal (Normal); Ketones,Urine Negative (Negative); Leukocyte Esterase,Urine Negative (Negative); Nitrite,Urine Negative (Negative); PH,Urine 5.5 pH Units (5.0-8.0); Protein,Urine Negative (Neg-Trace); Specific Gravity,Urine 1.025 (1.010-1.025); Urobilinogen,Urine Normal (Normal)
[2019-06-24 06:59] LABS: RBC,Urine 0-3 per hpf (0-3); WBC,Urine 0-3 per hpf (0-3)
[2019-06-24] MEDS: Insulin LISPRO 300 UNITS/3 ML VIAL SQ SCH ×4 (07:49→21:14)
[2019-06-24] MEDS: dexAMETHasone 4 MG TABLET PO SCH (08:15)
[2019-06-24] MEDS: Fluticasone Propionate Nasal 50 MCG/SPRAY BOTTLE NS SCH (08:16)
[2019-06-24] MEDS: Budesonide/Formoterol 160/4.5 1 PUFF INH IH SCH ×2 (08:59→21:07)
[2019-06-24] MEDS: Tiotropium 18 MCG inhalation IH SCH (08:59)
[2019-06-24] MEDS ORDERED: Insulin DETEMIR 100 UNIT/ML X5UNITS SQ SCH ×2 (21:00)
[2019-06-25] MEDS: Insulin LISPRO 300 UNITS/3 ML VIAL SQ SCH ×4 (07:55→21:18)
[2019-06-25] MEDS: dexAMETHasone 4 MG TABLET PO SCH (09:40)
[2019-06-25] MEDS: Fluticasone Propionate Nasal 50 MCG/SPRAY BOTTLE NS SCH (09:40)
[2019-06-25] MEDS: Tiotropium 18 MCG inhalation IH SCH (09:56)
[2019-06-25] MEDS: Budesonide/Formoterol 160/4.5 1 PUFF INH IH SCH ×2 (09:58→21:18)
[2019-06-25] MEDS: Insulin DETEMIR 100 UNIT/ML X5UNITS SQ SCH (21:19)
[2019-06-26] MEDS: dexAMETHasone 4 MG TABLET PO SCH (07:21)
[2019-06-26] MEDS: Insulin LISPRO 300 UNITS/3 ML VIAL SQ SCH ×4 (07:22→20:51)
[2019-06-26] MEDS: Fluticasone Propionate Nasal 50 MCG/SPRAY BOTTLE NS SCH (07:27)
[2019-06-26] MEDS: Tiotropium 18 MCG inhalation IH SCH (11:07)
[2019-06-26] MEDS: Budesonide/Formoterol 160/4.5 1 PUFF INH IH SCH ×2 (11:08→21:49)
[2019-06-26] MEDS: Insulin DETEMIR 100 UNIT/ML X5UNITS SQ SCH (21:48)
[2019-06-27 07:13] VITALS: BP 111/70
[2019-06-27] MEDS: Insulin LISPRO 300 UNITS/3 ML VIAL SQ SCH ×2 (09:27→11:42)
[2019-06-27] MEDS: Fluticasone Propionate Nasal 50 MCG/SPRAY BOTTLE NS SCH (09:27)
[2019-06-27] MEDS: dexAMETHasone 4 MG TABLET PO SCH (09:27)
[2019-06-27] MEDS: Tiotropium 18 MCG inhalation IH SCH (09:55)
[2019-06-27] MEDS: Budesonide/Formoterol 160/4.5 1 PUFF INH IH SCH (09:55)
== END 2019-06-27 13:07 | disposition short-term general hospital (02) | DRG 949 ==
LOC: INPGRE 06-18 14:50
PROVIDERS: ADMIT Family Medicine; ATTEND Family Medicine